=== PATIENT | female | born 1985 | race Caucasian/White ===

== ENCOUNTER 2020-06-14 09:54 | Inpatient (IN) ==
[2020-06-14 11:27] LABS: INR 1.1; Prothrombin Time 12.3 Seconds (9.4-12.1)
[2020-06-14 11:29] LABS: Basophils % 0.3 %; Eosinophils # 0.1 K/mcL (0.0-0.6); Eosinophils % 0.6 %; Hematocrit 45.6 % (35.3-44.9); Hemoglobin 13.9 g/dL (11.5-15.4); Immature Granulocytes % 0.3 % (0-4); Lymphocytes % 9.2 %; Mean Corpuscular HGB Conc 30.5 g/dL (31.6-35.5); Mean Corpuscular Hemoglobin 27.5 pg (28.0-33.3); Mean Corpuscular Volume 90.1 fL (83.0-100.0); Monocytes # 0.9 K/mcL (0.0-1.3); Monocytes % 8.9 %; Neutrophils # 8.3 K/mcL (1.6-8.9); Platelet Count 174 K/mcL (140-400); Red Blood Count 5.06 M/mcL (3.82-4.97); Red Cell Distribution Width 17.4 % (11.5-14.5); Segmented Neutrophils % 80.7 %; White Blood Count 10.3 K/mcL (4.3-11.1)
[2020-06-14 11:30] LABS: Activated Partial Thrombo Time 35.9 Seconds (26.0-36.0)
[2020-06-14 11:31] LABS: Alanine Aminotransferase 15 Units/L (7-52); Albumin 3.9 g/dL (3.5-5.7); Albumin/Globulin Ratio 1.1 (1.1-2.2); Alkaline Phosphatase 84 Units/L (34-104); Aspartate Amino Transferase 11 Units/L (13-39); BUN/Creatinine Ratio 8 (6-26); Bilirubin,Direct 0.1 mg/dL (0.0-0.2); Bilirubin,Indirect 0.3 mg/dL (0.0-1.0); Bilirubin,Total 0.4 mg/dL (0.3-1.0); Blood Urea Nitrogen 53 mg/dL (6-20); Calcium 8.4 mg/dL (8.6-10.3); Carbon Dioxide 26 mEq/L (23-29); Chloride 94 mEq/L (98-107); Globulin 3.6 g/dL (2.4-3.5); Glucose 100 mg/dL (70-105); Lipase 20 Units/L (11-82); Osmolality,Calculated 292 (280-300); Potassium 3.6 mEq/L (3.5-5.1); Sodium 134 mEq/L (136-145); Total Protein 7.5 g/dL (6.4-8.9); eGFR For African Americans 8 (> 60); eGFR For Non-African Americans 7 (> 60)
[2020-06-14 11:33] LABS: Troponin I < 0.03 ng/mL (< 0.04)
[2020-06-14] MEDS ORDERED: Morphine Sulfate Immed Rel 15 MG TABLET PO STA (11:34)
[2020-06-14] MEDS ORDERED: cefTRIAXone 1,000 MG in Water for inj. (sterile) 10 ML IVP ONE (12:09)
[2020-06-14] MEDS ORDERED: Azithromycin 500 MG in 0.9 % Sodium Chloride 250 ML IVPB ONE (12:10)
[2020-06-14] MEDS ORDERED: 0.9 % Sodium Chloride 1,000 ML IVC SCH (12:15)
[2020-06-14 13:36] LABS: Adenovirus Not Detected (Not Detect); Bordetella Pertussis Not Detected (Not Detect); Chlamydophila pneumoniae Not Detected (Not Detect); Coronavirus 229E Not Detected (Not Detect); Coronavirus HKU1 Not Detected (Not Detect); Coronavirus NL63 Not Detected (Not Detect); Coronavirus OC43 Not Detected (Not Detect); Human Metapneumovirus Not Detected (Not Detect); Human Rhinovirus/Enterovirus Not Detected (Not Detect); Influenza A Subtype 2009 H1 Not Detected (Not Detect); Influenza B Not Detected (Not Detect); Mycoplasma pneumoniae Not Detected (Not Detect); Parainfluenza Virus 1 Not Detected (Not Detect); Parainfluenza Virus 2 Not Detected (Not Detect); Parainfluenza Virus 3 Not Detected (Not Detect); Parainfluenza Virus 4 Not Detected (Not Detect); Respiratory Syncytial Virus Not Detected (Not Detect); SARS-CoV-2 Not Detected (Not Detect)
[2020-06-14] MEDS ORDERED: *HR* HYDROmorphone (PF) 1 MG/ML SYRINGE IVP STA (13:38)
[2020-06-14 13:48] LABS: Procalcitonin 0.91 ng/mL (0.00-0.15)
[2020-06-14] MEDS ORDERED: Vancomycin 1,500 MG/265 ML IV.SOLN IVPB ONE (13:48)
[2020-06-14 14:10] LABS: Bacteria,Urine Few per hpf (None-Few); Bilirubin,Urine Negative (Negative); Blood,Urine Small (Negative); Clarity,Urine Turbid (Clear); Color,Urine Light-Yellow (Yellow); Glucose,Urine (UA) Normal (Normal); Ketones,Urine Negative (Negative); Leukocyte Esterase,Urine Large (Negative); Mucus,Urine Few per lpf (None-Few); Nitrite,Urine Negative (Negative); Protein,Urine 70 mg/dL (Neg-Trace); Specific Gravity,Urine 1.009 (1.010-1.025); Squamous Epithelial Cell,Urine Moderate per hpf (None-Few); Urobilinogen,Urine Normal (Normal); WBC,Urine TNTC per hpf (0-3)
[2020-06-14] MEDS ORDERED: Naloxone 0.4 MG/ML INJ IVP PRN (14:38)
[2020-06-14] MEDS ORDERED: Ipratropium/Albuterol Neb 3 ML IH PRN (14:45)
[2020-06-14] MEDS ORDERED: GuaiFENesin Liq 200 MG/10 ML UDC PO PRN (14:46)
[2020-06-14] MEDS: *HR* OxyCODONE/APAP 5/325 TABLET PO PRN ×2 (16:05→22:21)
[2020-06-14] MEDS ORDERED: *HR* Heparin 5,000 UNIT/ML VIAL SQ SCH (18:00)
[2020-06-14] MEDS ORDERED: Morphine Sulfate 2 MG/ML SYRINGE IVP ONE (18:25)
[2020-06-14 19:32] LABS: Hepatitis B Surface Antibody 39.12 mIU/mL
[2020-06-14 19:44] LABS: Hepatitis B Surface Antigen Nonreactive (Nonreactive)
[2020-06-14] MEDS: *HR* Heparin 5,000 UNIT/ML VIAL SQ SCH (20:08)
[2020-06-15] MEDS: *HR* OxyCODONE/APAP 5/325 TABLET PO PRN ×3 (05:37→18:40)
[2020-06-15] MEDS: *HR* Heparin 5,000 UNIT/ML VIAL SQ SCH ×4 (05:37→20:53)
[2020-06-15 05:59] LABS: Basophils % 0.4 %; Eosinophils # 0.2 K/mcL (0.0-0.6); Eosinophils % 2.7 %; Hematocrit 42.1 % (35.3-44.9); Hemoglobin 12.8 g/dL (11.5-15.4); Immature Granulocytes % 0.3 % (0-4); Lymphocytes # 1.5 K/mcL (0.6-4.6); Lymphocytes % 16.2 %; Mean Corpuscular HGB Conc 30.4 g/dL (31.6-35.5); Mean Corpuscular Hemoglobin 27.2 pg (28.0-33.3); Mean Corpuscular Volume 89.6 fL (83.0-100.0); Mean Platelet Volume 11.3 fL (9.4-12.4); Monocytes # 0.7 K/mcL (0.0-1.3); Monocytes % 7.9 %; Neutrophils # 6.5 K/mcL (1.6-8.9); Platelet Count 184 K/mcL (140-400); Red Cell Distribution Width 17.6 % (11.5-14.5); Segmented Neutrophils % 72.5 %
[2020-06-15 06:18] LABS: Albumin 3.6 g/dL (3.5-5.7); Albumin/Globulin Ratio 1.1 (1.1-2.2); Bilirubin,Total 0.4 mg/dL (0.3-1.0); Calcium 8.4 mg/dL (8.6-10.3); Globulin 3.3 g/dL (2.4-3.5); Magnesium 2.1 mg/dL (1.6-2.6); Phosphorous 6.1 mg/dL (2.7-4.5); Potassium 3.5 mEq/L (3.5-5.1); Total Protein 6.9 g/dL (6.4-8.9)
[2020-06-15] MEDS: Nicotine 7 MG PATCH.TD24 TD SCH (07:44)
[2020-06-15] MEDS: cefTRIAXone 1,000 MG in Water for inj. (sterile) 10 ML IVP SCH (07:45)
[2020-06-15] MEDS ORDERED: 0.9 % Sodium Chloride 1,000 ML PRIME SCH (08:00)
[2020-06-15] MEDS ORDERED: 0.9 % Sodium Chloride 250 ML IVC PRN (08:00)
[2020-06-15] MEDS ORDERED: cefTRIAXone 1,000 MG in 0.9 % Sodium Chloride Mini Bag 100 ML IVPB SCH (09:00)
[2020-06-15] MEDS ORDERED: *HR* Heparin 10,000 UNIT/10 ML VIAL IV PRN (09:35)
[2020-06-15] MEDS: Ondansetron 4 MG/2 ML VIAL IVP PRN (13:15)
[2020-06-15] MEDS: Azithromycin 500 MG in 0.9 % Sodium Chloride 250 ML IVPB SCH (13:16)
[2020-06-15] MEDS ORDERED: tiZANidine 4 MG TABLET PO PRN (19:47)
[2020-06-16 04:30] LABS: Hemoglobin 12.9 g/dL (11.5-15.4); Mean Corpuscular Hemoglobin 27.2 pg (28.0-33.3); Mean Corpuscular Volume 90.5 fL (83.0-100.0); Mean Platelet Volume 11.1 fL (9.4-12.4); Platelet Count 190 K/mcL (140-400); Red Blood Count 4.75 M/mcL (3.82-4.97); Red Cell Distribution Width 17.2 % (11.5-14.5); White Blood Count 7.4 K/mcL (4.3-11.1)
[2020-06-16 04:50] LABS: Albumin 3.7 g/dL (3.5-5.7); Calcium 8.7 mg/dL (8.6-10.3); Phosphorous 6.1 mg/dL (2.7-4.5); Potassium 3.3 mEq/L (3.5-5.1)
[2020-06-16] MEDS: *HR* Heparin 5,000 UNIT/ML VIAL SQ SCH ×3 (05:35→22:31)
[2020-06-16] MEDS: *HR* OxyCODONE/APAP 5/325 TABLET PO PRN ×3 (05:42→19:34)
[2020-06-16] MEDS ORDERED: (Sucroferric Oxyhydroxide [Velphoro] 1,000 MG) PO SCH (08:00)
[2020-06-16] MEDS: cefTRIAXone 1,000 MG in Water for inj. (sterile) 10 ML IVP SCH (09:17)
[2020-06-16] MEDS: Azithromycin 500 MG in 0.9 % Sodium Chloride 250 ML IVPB SCH (09:18)
[2020-06-16] MEDS: Loratadine 10 MG TABLET PO SCH (09:18)
[2020-06-16] MEDS: Nicotine 7 MG PATCH.TD24 TD SCH (09:19)
[2020-06-16] MEDS: polyethylene glycoL 3350 17 GM POWD.PACK PO SCH (14:34)
[2020-06-16] MEDS: Venlafaxine XR (24 HR) 75 MG CAP.ER.24H PO SCH (17:06)
[2020-06-16] MEDS: Venlafaxine XR (24 HR) 150 MG CAP.ER.24H PO SCH (17:06)
[2020-06-16] MEDS ORDERED: Cefdinir 300 MG CAPSULE PO SCH (21:00)
[2020-06-17 05:56] LABS: Basophils % 0.5 %; Eosinophils # 0.3 K/mcL (0.0-0.6); Eosinophils % 5.2 %; Hematocrit 42.4 % (35.3-44.9); Hemoglobin 12.5 g/dL (11.5-15.4); Immature Granulocytes % 0.3 % (0-4); Lymphocytes # 1.6 K/mcL (0.6-4.6); Lymphocytes % 23.9 %; Mean Corpuscular HGB Conc 29.5 g/dL (31.6-35.5); Mean Corpuscular Hemoglobin 26.4 pg (28.0-33.3); Mean Corpuscular Volume 89.5 fL (83.0-100.0); Mean Platelet Volume 11.3 fL (9.4-12.4); Monocytes # 0.6 K/mcL (0.0-1.3); Monocytes % 9.4 %; Platelet Count 211 K/mcL (140-400); Red Blood Count 4.74 M/mcL (3.82-4.97); Red Cell Distribution Width 16.6 % (11.5-14.5); Segmented Neutrophils % 60.7 %; White Blood Count 6.6 K/mcL (4.3-11.1)
[2020-06-17 06:09] LABS: Albumin 3.6 g/dL (3.5-5.7); Calcium 8.9 mg/dL (8.6-10.3); Phosphorous 7.5 mg/dL (2.7-4.5); Potassium 3.8 mEq/L (3.5-5.1)
[2020-06-17] MEDS: *HR* Heparin 5,000 UNIT/ML VIAL SQ SCH ×3 (06:45→22:55)
[2020-06-17] MEDS: *HR* OxyCODONE/APAP 5/325 TABLET PO PRN ×3 (06:47→22:54)
[2020-06-17] MEDS ORDERED: 0.9 % Sodium Chloride 250 ML IVC PRN (07:16)
[2020-06-17] MEDS ORDERED: 0.9 % Sodium Chloride 1,000 ML PRIME SCH (07:30)
[2020-06-17] MEDS: Azithromycin 250 MG TABLET PO SCH (10:07)
[2020-06-17] MEDS: Loratadine 10 MG TABLET PO SCH (10:07)
[2020-06-17] MEDS: polyethylene glycoL 3350 17 GM POWD.PACK PO SCH (10:08)
[2020-06-17] MEDS: Nicotine 7 MG PATCH.TD24 TD SCH (10:08)
[2020-06-17] MEDS ORDERED: *HR* Heparin 10,000 UNIT/10 ML VIAL IV PRN (10:21)
[2020-06-17] MEDS: predniSONE 10 MG TABLET PO SCH (13:21)
[2020-06-17] MEDS: Cefdinir 300 MG CAPSULE PO SCH (13:21)
[2020-06-17] MEDS: Venlafaxine XR (24 HR) 75 MG CAP.ER.24H PO SCH (17:18)
[2020-06-17] MEDS: Venlafaxine XR (24 HR) 150 MG CAP.ER.24H PO SCH (17:18)
[2020-06-18 05:57] LABS: Basophils % 0.4 %; Eosinophils # 0.1 K/mcL (0.0-0.6); Eosinophils % 1.1 %; Hematocrit 42.3 % (35.3-44.9); Hemoglobin 13.1 g/dL (11.5-15.4); Immature Granulocytes % 0.4 % (0-4); Lymphocytes # 1.5 K/mcL (0.6-4.6); Lymphocytes % 19.8 %; Mean Corpuscular Hemoglobin 27.9 pg (28.0-33.3); Mean Platelet Volume 11.2 fL (9.4-12.4); Monocytes # 0.6 K/mcL (0.0-1.3); Monocytes % 8.4 %; Neutrophils # 5.2 K/mcL (1.6-8.9); Platelet Count 233 K/mcL (140-400); Red Cell Distribution Width 16.4 % (11.5-14.5); Segmented Neutrophils % 69.9 %; White Blood Count 7.4 K/mcL (4.3-11.1)
[2020-06-18 05:59] LABS: Albumin 3.7 g/dL (3.5-5.7); Phosphorous 4.5 mg/dL (2.7-4.5); Potassium 4.1 mEq/L (3.5-5.1)
[2020-06-18] MEDS: *HR* Heparin 5,000 UNIT/ML VIAL SQ SCH ×2 (06:14→15:27)
[2020-06-18] MEDS ORDERED: *HR* Heparin 10,000 UNIT/10 ML VIAL IV PRN (07:29)
[2020-06-18] MEDS ORDERED: 0.9 % Sodium Chloride 250 ML IVC PRN (07:29)
[2020-06-18] MEDS ORDERED: 0.9 % Sodium Chloride 1,000 ML PRIME SCH (07:30)
[2020-06-18] MEDS ORDERED: methylPREDNISolone 125 MG/2 ML VIAL IVP ONE (08:32)
[2020-06-18] MEDS ORDERED: Heparin 1,000 UNITS/500 mL 500 ML ONE (10:02)
[2020-06-18] MEDS ORDERED: 0.9 % Sodium Chloride 500 ML ONE (10:02)
[2020-06-18] MEDS ORDERED: Lidocaine/EPI 1:100k 1% 50 ML VIAL ONE (10:02)
[2020-06-18] MEDS ORDERED: Isovue-300 50ML VIAL IVP ONE (10:32)
[2020-06-18] MEDS: Azithromycin 250 MG TABLET PO SCH (11:12)
[2020-06-18] MEDS: predniSONE 10 MG TABLET PO SCH (11:12)
[2020-06-18] MEDS: Fluconazole 150 MG TABLET PO SCH (11:12)
[2020-06-18] MEDS: Loratadine 10 MG TABLET PO SCH (11:13)
[2020-06-18] MEDS: polyethylene glycoL 3350 17 GM POWD.PACK PO SCH (11:14)
[2020-06-18] MEDS: Nicotine 7 MG PATCH.TD24 TD SCH (11:26)
[2020-06-18 17:00] LABS: ABG Base Excess 5 mEq/L (-2 to 3); ABG HCO3 29 mEq/L (21-27); ABG Oxygen Saturation 93 % (95-98); ABG PCO2 37 mmHg (35-45); ABG PO2 62 mmHg (85-104); ABG TCO2 30 mEq/L (20-26)
[2020-06-18] MEDS: Venlafaxine XR (24 HR) 150 MG CAP.ER.24H PO SCH (17:55)
[2020-06-18] MEDS: Venlafaxine XR (24 HR) 75 MG CAP.ER.24H PO SCH (17:55)
[2020-06-18 18:49] LABS: D-Dimer 2198 ng/mLFEU (0-500)
[2020-06-18] MEDS ORDERED: *HR* Heparin 5,000 UNIT/ML VIAL IVP PRN ×2 (18:59)
[2020-06-18] MEDS ORDERED: *HR* Heparin 5,000 UNIT/ML VIAL IVP ONE (18:59)
[2020-06-18] MEDS ORDERED: Perflutren Lipid Microsphere 1.3 ML in 0.9 % Sodium Chloride 8.7 ML IVP PRN (19:08)
[2020-06-18 19:23] LABS: Heparin anti-factor XA UFH < 0.04 IU/mL (0.30-0.70); INR 1.1; Prothrombin Time 12.3 Seconds (9.4-12.1)
[2020-06-18 19:25] LABS: Activated Partial Thrombo Time 35.3 Seconds (26.0-36.0)
[2020-06-18] MEDS: Heparin 25,000UNIT/250ML 1/2NS 25,000 UNIT/250 ML IV.SOLN IVC SCH (20:55)
[2020-06-18] MEDS: *HR* OxyCODONE/APAP 5/325 TABLET PO PRN (23:20)
[2020-06-19 04:58] LABS: Hematocrit 47.4 % (35.3-44.9); Hemoglobin 14.6 g/dL (11.5-15.4); Mean Corpuscular HGB Conc 30.8 g/dL (31.6-35.5); Mean Corpuscular Hemoglobin 27.6 pg (28.0-33.3); Mean Corpuscular Volume 89.6 fL (83.0-100.0); Mean Platelet Volume 11.4 fL (9.4-12.4); Platelet Count 271 K/mcL (140-400); Red Blood Count 5.29 M/mcL (3.82-4.97); White Blood Count 10.9 K/mcL (4.3-11.1)
[2020-06-19 05:16] LABS: Albumin 4.3 g/dL (3.5-5.7); Calcium 10.2 mg/dL (8.6-10.3); Phosphorous 4.8 mg/dL (2.7-4.5)
[2020-06-19] MEDS ORDERED: Sennosides/Docusate Sodium TABLET PO ONE (08:55)
[2020-06-19] MEDS: Metoprolol XL (24 HR) Succ 25 MG TAB.ER.24H PO SCH (09:05)
[2020-06-19] MEDS: predniSONE 10 MG TABLET PO SCH (09:05)
[2020-06-19] MEDS: Fluconazole 150 MG TABLET PO SCH (09:05)
[2020-06-19] MEDS: Loratadine 10 MG TABLET PO SCH (09:05)
[2020-06-19] MEDS: *HR* OxyCODONE/APAP 5/325 TABLET PO PRN (09:06)
[2020-06-19] MEDS: Nicotine 7 MG PATCH.TD24 TD SCH (09:06)
[2020-06-19] MEDS: polyethylene glycoL 3350 17 GM POWD.PACK PO SCH (12:07)
[2020-06-19] MEDS: Cefdinir 300 MG CAPSULE PO SCH (14:45)
[2020-06-19] MEDS: Heparin 25,000UNIT/250ML 1/2NS 25,000 UNIT/250 ML IV.SOLN IVC SCH (16:02)
[2020-06-19] MEDS: Venlafaxine XR (24 HR) 75 MG CAP.ER.24H PO SCH (17:51)
[2020-06-19] MEDS: Venlafaxine XR (24 HR) 150 MG CAP.ER.24H PO SCH (17:51)
[2020-06-19] MEDS: *HR* OxyCODONE Immed Rel 5 MG TABLET PO PRN (17:52)
[2020-06-20 04:09] LABS: Basophils # 0.1 K/mcL (0.0-0.2); Basophils % 0.5 %; Eosinophils % 0.2 %; Hematocrit 45.1 % (35.3-44.9); Hemoglobin 13.9 g/dL (11.5-15.4); Immature Granulocytes % 0.8 % (0-4); Lymphocytes # 2.5 K/mcL (0.6-4.6); Lymphocytes % 22.7 %; Mean Corpuscular HGB Conc 30.8 g/dL (31.6-35.5); Mean Corpuscular Hemoglobin 27.5 pg (28.0-33.3); Mean Corpuscular Volume 89.1 fL (83.0-100.0); Mean Platelet Volume 11.5 fL (9.4-12.4); Monocytes # 0.9 K/mcL (0.0-1.3); Neutrophils # 7.6 K/mcL (1.6-8.9); Platelet Count 257 K/mcL (140-400); Red Blood Count 5.06 M/mcL (3.82-4.97); Red Cell Distribution Width 16.6 % (11.5-14.5); Segmented Neutrophils % 67.8 %; White Blood Count 11.2 K/mcL (4.3-11.1)
[2020-06-20 04:15] LABS: Albumin 3.9 g/dL (3.5-5.7); Calcium 9.3 mg/dL (8.6-10.3); Phosphorous 6.6 mg/dL (2.7-4.5); Potassium 4.1 mEq/L (3.5-5.1)
[2020-06-20] MEDS: polyethylene glycoL 3350 17 GM POWD.PACK PO SCH (08:53)
[2020-06-20] MEDS: Loratadine 10 MG TABLET PO SCH (08:54)
[2020-06-20] MEDS: predniSONE 10 MG TABLET PO SCH (08:54)
[2020-06-20] MEDS: Metoprolol XL (24 HR) Succ 25 MG TAB.ER.24H PO SCH (08:54)
[2020-06-20] MEDS: Fluconazole 150 MG TABLET PO SCH (08:54)
[2020-06-20] MEDS: *HR* OxyCODONE Immed Rel 5 MG TABLET PO PRN ×3 (08:54→22:03)
[2020-06-20] MEDS: Nicotine 7 MG PATCH.TD24 TD SCH (08:55)
[2020-06-20] MEDS: Sennosides/Docusate Sodium TABLET PO SCH ×2 (15:43→22:03)
[2020-06-20] MEDS: Heparin 25,000UNIT/250ML 1/2NS 25,000 UNIT/250 ML IV.SOLN IVC SCH (16:47)
[2020-06-20] MEDS: Venlafaxine XR (24 HR) 75 MG CAP.ER.24H PO SCH (17:56)
[2020-06-20] MEDS: Venlafaxine XR (24 HR) 150 MG CAP.ER.24H PO SCH (17:56)
[2020-06-20] MEDS: Ondansetron 4 MG/2 ML VIAL IVP PRN (19:43)
[2020-06-21] MEDS: Ondansetron 4 MG/2 ML VIAL IVP PRN (06:00)
[2020-06-21] MEDS: *HR* OxyCODONE Immed Rel 5 MG TABLET PO PRN ×3 (06:00→20:29)
[2020-06-21] MEDS ORDERED: 0.9 % Sodium Chloride 250 ML IVC PRN (07:14)
[2020-06-21 07:22] LABS: Basophils # 0.1 K/mcL (0.0-0.2); Basophils % 0.4 %; Eosinophils # 0.1 K/mcL (0.0-0.6); Eosinophils % 0.9 %; Hematocrit 44.7 % (35.3-44.9); Hemoglobin 13.9 g/dL (11.5-15.4); Immature Granulocytes % 0.8 % (0-4); Lymphocytes # 2.7 K/mcL (0.6-4.6); Lymphocytes % 22.7 %; Mean Corpuscular HGB Conc 31.1 g/dL (31.6-35.5); Mean Corpuscular Hemoglobin 27.7 pg (28.0-33.3); Mean Corpuscular Volume 89.2 fL (83.0-100.0); Mean Platelet Volume 11.3 fL (9.4-12.4); Monocytes # 0.9 K/mcL (0.0-1.3); Monocytes % 7.5 %; Neutrophils # 7.9 K/mcL (1.6-8.9); Platelet Count 286 K/mcL (140-400); Red Blood Count 5.01 M/mcL (3.82-4.97); Red Cell Distribution Width 16.5 % (11.5-14.5); Segmented Neutrophils % 67.7 %; White Blood Count 11.7 K/mcL (4.3-11.1)
[2020-06-21 07:49] LABS: Albumin 3.9 g/dL (3.5-5.7); Calcium 9.6 mg/dL (8.6-10.3); Phosphorous 7.4 mg/dL (2.7-4.5); Potassium 3.6 mEq/L (3.5-5.1)
[2020-06-21] MEDS: Nicotine 7 MG PATCH.TD24 TD SCH (08:27)
[2020-06-21] MEDS: Loratadine 10 MG TABLET PO SCH (08:33)
[2020-06-21] MEDS: Sennosides/Docusate Sodium TABLET PO SCH ×2 (08:33→20:26)
[2020-06-21] MEDS: polyethylene glycoL 3350 17 GM POWD.PACK PO SCH (08:34)
[2020-06-21] MEDS: Heparin 25,000UNIT/250ML 1/2NS 25,000 UNIT/250 ML IV.SOLN IVC SCH ×2 (13:09→23:22)
[2020-06-21 13:12] LABS: Prothrombin Time 11.5 Seconds (9.4-12.1)
[2020-06-21 13:40] LABS: Basophils # 0.1 K/mcL (0.0-0.2); Basophils % 0.5 %; Eosinophils # 0.2 K/mcL (0.0-0.6); Eosinophils % 1.3 %; Hematocrit 52.5 % (35.3-44.9); Lymphocytes # 2.3 K/mcL (0.6-4.6); Lymphocytes % 15.8 %; Mean Corpuscular HGB Conc 31.4 g/dL (31.6-35.5); Mean Corpuscular Hemoglobin 27.7 pg (28.0-33.3); Mean Corpuscular Volume 88.1 fL (83.0-100.0); Mean Platelet Volume 11.5 fL (9.4-12.4); Monocytes # 0.9 K/mcL (0.0-1.3); Monocytes % 6.5 %; Neutrophils # 10.7 K/mcL (1.6-8.9); Platelet Count 347 K/mcL (140-400); Red Blood Count 5.96 M/mcL (3.82-4.97); Red Cell Distribution Width 17.9 % (11.5-14.5); Segmented Neutrophils % 74.9 %; White Blood Count 14.3 K/mcL (4.3-11.1)
[2020-06-21] MEDS: Metoprolol XL (24 HR) Succ 25 MG TAB.ER.24H PO SCH (13:42)
[2020-06-21 13:47] LABS: Hemoglobin 16.5 g/dL (11.5-15.4)
[2020-06-21 14:01] LABS: Calcium 10.2 mg/dL (8.6-10.3); Magnesium 2.1 mg/dL (1.6-2.6); Potassium 3.6 mEq/L (3.5-5.1)
[2020-06-21] MEDS ORDERED: levoFLOXacin 750 MG/150 ML 750 MG/150 ML BAG IVPB SCH (17:00)
[2020-06-21] MEDS: Venlafaxine XR (24 HR) 150 MG CAP.ER.24H PO SCH (17:49)
[2020-06-21] MEDS: Venlafaxine XR (24 HR) 75 MG CAP.ER.24H PO SCH (17:49)
[2020-06-21] MEDS ORDERED: Warfarin perPT PO PRN (18:00)
[2020-06-21] MEDS ORDERED: *HR* Enoxaparin 120 MG/0.8 ML SYRINGE SQ SCH (18:00)
[2020-06-21] MEDS ORDERED: *HR* Warfarin 5 MG TABLET PO ONE (18:00)
[2020-06-22 07:09] LABS: Basophils # 0.1 K/mcL (0.0-0.2); Basophils % 0.8 %; Eosinophils # 0.2 K/mcL (0.0-0.6); Eosinophils % 2.1 %; Hematocrit 50.3 % (35.3-44.9); Hemoglobin 15.1 g/dL (11.5-15.4); Lymphocytes # 2.7 K/mcL (0.6-4.6); Lymphocytes % 25.7 %; Mean Corpuscular Hemoglobin 26.7 pg (28.0-33.3); Mean Platelet Volume 11.1 fL (9.4-12.4); Monocytes % 9.4 %; Neutrophils # 6.4 K/mcL (1.6-8.9); Platelet Count 271 K/mcL (140-400); Red Blood Count 5.65 M/mcL (3.82-4.97); Red Cell Distribution Width 17.6 % (11.5-14.5); White Blood Count 10.4 K/mcL (4.3-11.1)
[2020-06-22 07:16] LABS: INR 1.2; Prothrombin Time 13.5 Seconds (9.4-12.1)
[2020-06-22] MEDS ORDERED: 0.9 % Sodium Chloride 250 ML IVC PRN (07:21)
[2020-06-22 07:34] LABS: Calcium 10.2 mg/dL (8.6-10.3); Magnesium 2.2 mg/dL (1.6-2.6); Potassium 3.9 mEq/L (3.5-5.1)
[2020-06-22] MEDS: *HR* OxyCODONE Immed Rel 5 MG TABLET PO PRN ×2 (08:07→16:36)
[2020-06-22] MEDS: Sennosides/Docusate Sodium TABLET PO SCH (08:08)
[2020-06-22] MEDS: Loratadine 10 MG TABLET PO SCH (08:08)
[2020-06-22] MEDS: polyethylene glycoL 3350 17 GM POWD.PACK PO SCH (08:09)
[2020-06-22] MEDS: Nicotine 7 MG PATCH.TD24 TD SCH (08:09)
[2020-06-22] MEDS: Metoprolol XL (24 HR) Succ 25 MG TAB.ER.24H PO SCH (12:40)
[2020-06-22] MEDS: Venlafaxine XR (24 HR) 150 MG CAP.ER.24H PO SCH (16:35)
[2020-06-22] MEDS: Venlafaxine XR (24 HR) 75 MG CAP.ER.24H PO SCH (16:37)
[2020-06-22] MEDS ORDERED: *HR* Heparin 5,000 UNIT/ML VIAL IVP ONE (17:00)
[2020-06-22] MEDS ORDERED: *HR* Heparin 5,000 UNIT/ML VIAL IVP PRN ×2 (17:00)
[2020-06-22] MEDS: Heparin 25,000UNIT/250ML 1/2NS 25,000 UNIT/250 ML IV.SOLN IVC SCH (17:49)
[2020-06-22] MEDS ORDERED: *HR* Warfarin 5 MG TABLET PO ONE (18:00)
[2020-06-22] MEDS: Lactobacillus 1 EACH CAP.SPRINK PO SCH (20:48)
[2020-06-23 01:03] LABS: Basophils # 0.1 K/mcL (0.0-0.2); Basophils % 0.9 %; Eosinophils # 0.2 K/mcL (0.0-0.6); Eosinophils % 1.2 %; Hemoglobin 15.9 g/dL (11.5-15.4); Immature Granulocytes % 1.3 % (0-4); Lymphocytes # 2.2 K/mcL (0.6-4.6); Mean Corpuscular Hemoglobin 26.7 pg (28.0-33.3); Mean Corpuscular Volume 88.9 fL (83.0-100.0); Mean Platelet Volume 11.3 fL (9.4-12.4); Monocytes # 1.2 K/mcL (0.0-1.3); Monocytes % 8.9 %; Neutrophils # 9.8 K/mcL (1.6-8.9); Platelet Count 300 K/mcL (140-400); Red Blood Count 5.96 M/mcL (3.82-4.97); Segmented Neutrophils % 71.7 %; White Blood Count 13.6 K/mcL (4.3-11.1)
[2020-06-23 01:05] LABS: INR 1.2; Prothrombin Time 13.5 Seconds (9.4-12.1)
[2020-06-23 01:20] LABS: Calcium 10.1 mg/dL (8.6-10.3); Magnesium 2.4 mg/dL (1.6-2.6); Phosphorous 6.8 mg/dL (2.7-4.5); Potassium 4.1 mEq/L (3.5-5.1)
[2020-06-23] MEDS: Lactobacillus 1 EACH CAP.SPRINK PO SCH ×2 (08:57→21:14)
[2020-06-23] MEDS: Loratadine 10 MG TABLET PO SCH (08:58)
[2020-06-23] MEDS: polyethylene glycoL 3350 17 GM POWD.PACK PO SCH (08:58)
[2020-06-23] MEDS: Nicotine 7 MG PATCH.TD24 TD SCH (08:58)
[2020-06-23] MEDS ORDERED: 0.9 % Sodium Chloride 500 ML IVC ONE ×2 (09:53→12:58)
[2020-06-23] MEDS: Heparin 25,000UNIT/250ML 1/2NS 25,000 UNIT/250 ML IV.SOLN IVC SCH (10:18)
[2020-06-23] MEDS: *HR* OxyCODONE Immed Rel 5 MG TABLET PO PRN ×2 (12:11→18:17)
[2020-06-23] MEDS ORDERED: levoFLOXacin 500 MG/100 ML 500 MG/100 ML BAG IVPB SCH (13:00)
[2020-06-23] MEDS ORDERED: methylPREDNISolone 125 MG/2 ML VIAL IVP ONE (13:10)
[2020-06-23] MEDS ORDERED: Isovue-370 500 ML BOTTLE IVP ONE ×2 (13:10→15:49)
[2020-06-23] MEDS: Piperacillin/Tazobactam 3.375 GM in 0.9 % Sodium Chloride Mini Bag 100 ML IVPB SCH (15:50)
[2020-06-23] MEDS: Venlafaxine XR (24 HR) 150 MG CAP.ER.24H PO SCH (17:23)
[2020-06-23] MEDS: Venlafaxine XR (24 HR) 75 MG CAP.ER.24H PO SCH (17:23)
[2020-06-23] MEDS: *HR* Heparin 5,000 UNIT/ML VIAL SQ SCH (17:57)
[2020-06-23] MEDS ORDERED: *HR* Warfarin 2.5 MG TABLET PO ONE (18:00)
[2020-06-24] MEDS: Piperacillin/Tazobactam 3.375 GM in 0.9 % Sodium Chloride Mini Bag 100 ML IVPB SCH ×2 (00:10→07:59)
[2020-06-24] MEDS ORDERED: Acetaminophen IV 1,000 MG/100 ML INFUS..BTL IVPB PRN (00:39)
[2020-06-24 05:00] LABS: Basophils % 0.2 %; Hematocrit 42.6 % (35.3-44.9); Immature Granulocytes % 1.3 % (0-4); Lymphocytes # 1.1 K/mcL (0.6-4.6); Lymphocytes % 8.4 %; Mean Corpuscular HGB Conc 30.8 g/dL (31.6-35.5); Mean Corpuscular Hemoglobin 27.5 pg (28.0-33.3); Mean Corpuscular Volume 89.5 fL (83.0-100.0); Mean Platelet Volume 11.6 fL (9.4-12.4); Monocytes # 0.5 K/mcL (0.0-1.3); Monocytes % 3.7 %; Neutrophils # 11.1 K/mcL (1.6-8.9); Platelet Count 264 K/mcL (140-400); Red Blood Count 4.76 M/mcL (3.82-4.97); Red Cell Distribution Width 16.9 % (11.5-14.5); Segmented Neutrophils % 86.4 %; White Blood Count 12.9 K/mcL (4.3-11.1)
[2020-06-24 05:04] LABS: Hemoglobin 13.1 g/dL (11.5-15.4)
[2020-06-24 05:06] LABS: INR 1.5; Prothrombin Time 17.5 Seconds (9.4-12.1)
[2020-06-24 05:15] LABS: Calcium 9.4 mg/dL (8.6-10.3); Magnesium 2.3 mg/dL (1.6-2.6); Phosphorous 7.2 mg/dL (2.7-4.5); Potassium 5.1 mEq/L (3.5-5.1)
[2020-06-24] MEDS: *HR* Heparin 5,000 UNIT/ML VIAL SQ SCH (05:50)
[2020-06-24] MEDS: Lactobacillus 1 EACH CAP.SPRINK PO SCH (07:57)
[2020-06-24] MEDS: *HR* OxyCODONE Immed Rel 5 MG TABLET PO PRN (07:58)
[2020-06-24] MEDS: Loratadine 10 MG TABLET PO SCH (07:58)
[2020-06-24] MEDS: Nicotine 7 MG PATCH.TD24 TD SCH (07:59)
[2020-06-24] MEDS: polyethylene glycoL 3350 17 GM POWD.PACK PO SCH (07:59)
[2020-06-24] MEDS ORDERED: 0.9 % Sodium Chloride 250 ML IVC PRN (08:49)
[2020-06-24] MEDS ORDERED: Albumin 25% 25gram/100mL 25 GM/100 ML IV.SOLN IVPB PRN (08:49)
[2020-06-24] MEDS ORDERED: 0.9 % Sodium Chloride 1,000 ML PRIME SCH (09:00)
[2020-06-24 13:54] VITALS: BP 141/83
[2020-06-24] MEDS ORDERED: Piperacillin/Tazobactam 3.375 GM in 0.9 % Sodium Chloride Mini Bag 100 ML IVPB SCH (15:00)
== END 2020-06-24 14:38 | disposition home or self-care (01) | DRG 193 ==
LOC: EMEROOARM 09:54 → 2ANU 09:54 → SUATTDRO 14:00 → 2ANU 14:40 → SUATTDRO 06-15 16:52
PROVIDERS: ADMIT Internal Medicine; ATTEND Internal Medicine